=== PATIENT | female | born 1975 | race Two or more races ===

== ENCOUNTER → 2025-09-26 | Emergency (ER) | payer BC ==
[~2025-09-26] VITALS: Ht 165.1 cm; Wt 79.4 kg
[~2025-09-26] MED LIST: AMLODIPINE-OLM1 EAC2; APLENZIN174 MG; COZAAR25 MG; DEXAMETHASONE SODIUM PHOSP/PF 10 MG/ML VIAL IV ONE; KETO10TA2 PO; KETOROLAC TROMETHAMINE 60 MG VIAL IM ONE; NORFLEX100MG PO; ORPHENADRINE CITRATE 30 MG/ML AMPUL IM ONE; PEPCID AC20 MG PO; TOPROL XL25 M1
== END | disposition home or self-care (01) ==
LOC: ER 11:34
DX: M25.551 Pain in right hip (principal); I10 Essential (primary) hypertension